=== PATIENT | male | born 1970 ===

== ENCOUNTER 2023-06-10 06:58 | Day surgery (SDC) | payer OTHER | END 2023-06-10 11:55 | disposition home or self-care (01) | LOC: AMB-ENDOS 06:58 | PROVIDERS: ATTEND Surgery | DX: D12.4 Benign neoplasm of descending colon (principal); D12.5 Benign neoplasm of sigmoid colon; D12.6 Benign neoplasm of colon, unspecified; K57.30 Diverticulosis of large intestine without perforation or abscess without bleeding; R14.0 Abdominal distension (gaseous); K63.5 Polyp of colon ==